=== PATIENT | female | born 1970 | race African-American/Black ===

== ENCOUNTER 2018-02-13 20:08 | Inpatient (IN) | payer OTHER ==
[2018-02-13 21:35] VITALS: BMI 23.0
[2018-02-13] MEDS ORDERED: MELATONIN 5 MG TABLETS PO PRN (22:00)
--- NOTE | 2018-02-13 22:08 | HP ---
CIWA Score Nausea/Vomitin-No Nausea/No Vomiting Muscle Tremors: 4-Moderate,w/Arms Extend Anxiety: 3 Agitation: 0-Normal Activity Paroxysmal Sweats: 1-Minimal Palms Moist Orientation: 2-Disoriented Date<2 days Tacttile Disturbances: 0-None Auditory Disturbances: 0-None Visual Disturbances: 0-None Headache: 4-Moderately Severe CIWA-Ar Total Score: 14 - Admission Criteria OASAS Guidelines: Admission for Medically Managed Detox: Requires at least one of the followin. CIWA greater than 12 2. Seizures within the past 24 hours 3. Delirium tremens within the past 24 hours 4. Hallucinations within the past 24 hours 5. Acute intervention needed for co occurring medical disorder 6. Acute intervention needed for co occurring psychiatric disorder 7. Severe withdrawal that cannot be handled at a lower level of care (continued vomiting, continued diarrhea, abnormal vital signs) requiring intravenous medication and/or fluids 8. Admission ROS [facility] - [facility] Chief Complaint: Alcohol withdrawal symptoms Allergies/Adverse Reactions: Allergies Allergy/AdvReac Type Severity Reaction Status Date / Time egg [Egg] Allergy Severe Itching Verified 02/13/18 21:23 penicillin G Allergy Intermediate Swelling Verified 02/13/18 21:23 Unclassified Drug Allergy Intermediate ALLERGY TO Verified 02/13/18 21:23 RED SAUCE History of Present Illness: 47 years old female with 28 years history of alcohol dependence is seeking admission to detox. Patient reports 2 years of sobriety. She has medical history of COPD and depression. Patient denies suicidal ideation at this time. Exam Limitations: No Limitations - Ebola screening Have you traveled outside of the country in the last 21 days: No (N) Have you had contact with anyone from an Ebola affected area: No Have you been sick,other than usual withdrawal symptoms: No Do you have a fever: No - Review of Systems Constitutional: Chills, Changes in sleep EENT: reports: No Symptoms Reported Respiratory: reports: No Symptoms reported Cardiac: reports: No Symptoms Reported GI: reports: Poor Appetite, Poor Fluid Intake, Abdominal cramping : reports: No Symptoms Reported Musculoskeletal: reports: No Symptoms Reported Integumentary: reports: Dryness Neuro: reports: Headache, Tremors Endocrine: reports: No Symptoms Reported Hematology: reports: No Symptoms Reported Psychiatric: reports: Anxious, Depressed Other Systems: Reviewed and Negative Patient History - Patient Medical History Hx Anemia: No Hx Asthma: No Hx Chronic Obstructive Pulmonary Disease (COPD): No Hx Cancer: No Hx Cardiac Disorders: No Hx Congestive Heart Failure: No Hx Hypertension: No Hx Hypercholesterolemia: No HX Cerebrovascular Accident: No Hx Seizures: No Hx Dementia: No Hx Diabetes: No Hx Gastrointestinal Disorders: No Hx Liver Disease: No Hx Genitourinary Disorders: No Hx Sexually Transmitted Disorders: No Hx Renal Disease (ESRD): No Hx Thyroid Disease: No Hx Human Immunodeficiency Virus (HIV): No (Negative 2014) Hx Hepatitis C: No Hx Depression: Yes (Seroquel, Zoloft) Hx Suicide Attempt: No Hx Bipolar Disorder: Yes Hx Schizophrenia: No - Patient Surgical History Past Surgical History: Yes Hx Neurologic Surgery: No Hx Cataract Extraction: No Hx Cardiac Surgery: No Hx Lung Surgery: No Hx Breast Surgery: No Hx Breast Biopsy: No Hx Abdominal Surgery: No Hx Appendectomy: No Hx Cholecystectomy: No Hx Genitourinary Surgery: No Hx Section: Yes (2005) Hx Orthopedic Surgery: No Anesthesia Reaction: No - PPD History Previous Implant?: Yes Documented Results: Negative w/proof Date: 01/21/14 PPD to be Administered?: Yes - Reproductive History Patient is a Female of Child Bearing Age (11 -55 yrs old): Yes Last Menstrual Period: 01/16/14 LMP comment: Menopausal Patient : No (Last menstruation 3 years ago) - Smoking Cessation Smoking history: Current every day smoker Have you smoked in the past 12 months: Yes Aproximately how many cigarettes per day: 30 Hx Chewing Tobacco Use: No Initiated information on smoking cessation: Yes 'Breaking Loose' booklet given: 02/13/18 - Substance & Tx. History Hx Alcohol Use: Yes Hx Substance Use: Yes Substance Use Type: Alcohol, Cocaine Hx Substance Use Treatment: Yes (Yanick MACEDO 2016) - Substances Abused Alcohol Route: Oral Frequency: Daily Amount used: LIQUOR- 3 PINTS Age of first use: 19 Date of Last Use: 02/13/18 Family Disease History - Family Disease History Family Disease History: Other: Mother (Heroine addiction, AIDS - ) Admission Physical Exam [facility] - Vital Signs Vital Signs: Vital Signs - 24 hr 02/13/18 21:27 Temperature 98.0 F Pulse Rate 101 H Respiratory 18 Rate Blood Pressure 131/86 - Physical General Appearance: Yes: Moderate Distress, Tremorous, Anxious HEENTM: Yes: EOMI, Normal ENT Inspection, Normal Voice, ALESSANDRA Respiratory: Yes: Lungs Clear, Normal Breath Sounds, No Respiratory Distress Neck: Yes: Supple Breast: Yes: Breast Exam Deferred Cardiology: Yes: Tachycardia Abdominal: Yes: Normal Bowel Sounds Genitourinary: Yes: Within Normal Limits Back: Yes: Normal Inspection Musculoskeletal: Yes: Within Normal Limits Extremities: Yes: Tremors Neurological: Yes: Alert, Normal Mood/Affect Integumentary: Yes: Warm Lymphatic: Yes: Within Normal Limits - Diagnostic (1) Alcohol dependence with uncomplicated withdrawal Current Visit: Yes Status: Chronic (2) COPD (chronic obstructive pulmonary disease) with emphysema Current Visit: Yes Status: Chronic (3) Depression Current Visit: Yes Status: Chronic Qualifiers: Depression Type: unspecified Qualified Code(s): F32.9 - Major depressive disorder, single episode, unspecified (4) Nicotine dependence Current Visit: Yes Status: Chronic Cleared for Admission [facility] - Detox or Rehab [facility] Level of Care: Medically Managed Detox Regimen/Protocol: Librium [facility] Breath Alcohol Content Breath Alcohol Content: 164 Urine Pregancy Test - Result Urine Test Results: Negative- NO Line Present Urine Drug Screen - Results Drug Screen Negative: No Urine Drug Screen Results: LINDSAY-Cocaine
[2018-02-13] MEDS ORDERED: NICOTINE POLACRILEX 2 MG GUM BC PRN (22:17)
[2018-02-13] MEDS ORDERED: guaiFENesin/D-METHORPHAN HB 10 ML UNIT-DOSE CUPS PO PRN (22:17)
[2018-02-13] MEDS ORDERED: IBUPROFEN 400 MG TABLET (FP) PO PRN (22:17)
[2018-02-13] MEDS ORDERED: chlordiazePOXIDE HCL 25 MG CAPSULE PO PRN (22:17)
[2018-02-13] MEDS ORDERED: ACETAMINOPHEN 325 MG TABLET (FP) PO PRN (22:17)
[2018-02-13] MEDS ORDERED: LOPERAMIDE HCL 2 MG CAPSULE PO PRN (22:17)
[2018-02-13] MEDS ORDERED: MAGNESIUM HYDROX 2400MG/30ML ORAL SUSPENSION 30 ML CUP PO PRN (22:17)
[2018-02-13] MEDS ORDERED: P-EPHED 60MG/TRIPROLIDI 2.5MG TABLET PO PRN (22:17)
[2018-02-13] MEDS ORDERED: MAGNESIUM CITRATE 300 ML BOTTLE PO PRN (22:17)
[2018-02-13] MEDS ORDERED: MENTHOL/PHENOL 1 EACH UD MM PRN (22:17)
[2018-02-13] MEDS ORDERED: MAG HYDROX/AL HYDROX/SIMETH 30 ML UNIT-DOSE CUP PO PRN (22:17)
[2018-02-13] MEDS: chlordiazePOXIDE HCL 25 MG CAPSULE PO SCH (23:36)
[2018-02-14] MEDS: chlordiazePOXIDE HCL 25 MG CAPSULE PO SCH ×2 (06:43→10:22)
[2018-02-14 07:26] VITALS: PULSE 79
--- NOTE | 2018-02-14 07:35 | CONSULT ---
[facility] Psychiatric Consult - Data Date of interview: 02/14/18 Admission source: [facility] Identifying data: 47 years old female with 28 years history of alcohol dependence is seeking admission to detox. Patient reports 2 years of sobriety. She has medical history of COPD and depression. Patient denies suicidal ideation at this time. Substance Abuse History: - Smoking Cessation. Smoking history: Current every day smoker. Have you smoked in the past 12 months: Yes. Aproximately how many cigarettes per day: 30. Hx Chewing Tobacco Use: No. Initiated information on smoking cessation: Yes. 'Breaking Loose' booklet given: 02/13/18. - Substance & Tx. History. Hx Alcohol Use: Yes. Hx Substance Use: Yes. Substance Use Type : Alcohol, Cocaine. Hx Substance Use Treatment: Yes (Yanick MACEDO 2016). - Substances Abused. Alcohol. Route: Oral. Frequency: Daily. Amount used: LIQUOR- 3 PINTS. Age of first use: 19. Date of Last Use: 02/13/18 Medical History: COPD, Psychiatric History: Patient reports history of anxiety and depression, as per computer there is a history of BD-II, reprots most recent psychiatric admission on 2006 at [facility] for safety, reports takinhg prior to admission: Zoloft 50mg po qhd. Seroquel 200mg po qhs. Denies suicidal and homicidal history Physical/Sexual Abuse/Trauma History: Denies Additional Comment: Zoloft 50mg po qhd. Seroquel 200mg po qhs Mental Status Exam - Mental Status Exam Alert and Oriented to: Person Cognitive Function: Fair Patient Appearance: Unkempt Mood: Sad Affect: Flat Patient Behavior: Sedated, Cooperative Speech Pattern: Delayed Voice Loudness: Mildly Soft/Quiet Thought Process: Circumstantial, Goal Oriented Thought Disorder: Being Controlled Hallucinations: Denies Suicidal Ideation: Denies Homicidal Ideation: Denies Insight/Judgement: Fair Sleep: Difficulty falling asleep Appetite: Fair Muscle strength/Tone: Mild Hypotonicity Gait/Station: Shuffling Additional Comments: Zoloft 50mg po qhd. Seroquel 200mg po qhs Psychiatric Findings - Problem List ([place] 1, 2,3) (1) Alcohol dependence with uncomplicated withdrawal Current Visit: Yes Status: Chronic (2) COPD (chronic obstructive pulmonary disease) with emphysema Current Visit: Yes Status: Chronic (3) Nicotine dependence Current Visit: Yes Status: Chronic (4) Bipolar II disorder Current Visit: No Status: Acute - Initial Treatment Plan Initial Treatment Plan: Zoloft 50mg po qhd. Seroquel 200mg po qhs
[2018-02-14 09:30] VITALS: BP 114/67; TEMP 96.2
[2018-02-14] MEDS ORDERED: SERTRALINE HCL 50 MG TABLET (FP) PO SCH (10:00)
[2018-02-14] MEDS ORDERED: PRENATAL VITAMINS W/ FOLIC ACID TABLET (FP) PO SCH (10:00)
[2018-02-14] MEDS ORDERED: NICOTINE 14 MG/24 HOURS TOPICAL PATCH TD SCH (10:00)
[2018-02-14 10:29] LABS: HEMOGLOBIN 13.7 GM/dL (10.7-15.3); MCH 32.4 pg (25.7-33.7); MCHC 33.5 g/dl (32.0-36.0); MEAN CELL VOLUME 96.8 fl (80-96); MEAN PLT VOLUME 8.6 fl (7.5-11.1); PLATELET COUNT 244 K/MM3 (134-434); RBC 4.24 M/mm3 (3.60-5.2); RDW 13.5 % (11.6-15.6); WHITE BLOOD COUNT 5.3 K/mm3 (4.0-10.0)
[2018-02-14 10:41] LABS: ALBUMIN 3.4 g/dl (3.4-5.0); ALK PHOS 129 U/L (45-117); ANION GAP 10 MMOL/L (8-16); BILIRUBIN,TOTAL 0.4 mg/dL (0.2-1); BLOOD UREA NITROGEN 15 mg/dL (7-18); CALCIUM 9.4 mg/dL (8.5-10.1); CHLORIDE 103 mmol/L (98-107); CO2 27 mmol/L (21-32); CREATININE 0.7 mg/dL (0.55-1.3); GLUCOSE,RANDOM 94 mg/dL (74-106); POTASSIUM 3.6 mmol/L (3.5-5.1); SGOT/AST 13 U/L (15-37); SGPT/ALT 14 U/L (13-61); SODIUM 140 mmol/L (136-145); TOT PROT 7.2 g/dl (6.4-8.2)
--- NOTE | 2018-02-14 10:51 | EKG ---
Test Reason : Blood Pressure : / mmHG Vent. Rate : 080 BPM Atrial Rate : 080 BPM P-R Int : 152 ms QRS Dur : 076 ms QT Int : 394 ms P-R-T Axes : 061 -34 062 degrees QTc Int : 454 ms NORMAL SINUS RHYTHM LEFT AXIS DEVIATION SEPTAL INFARCT , AGE UNDETERMINED ABNORMAL ECG NO PREVIOUS ECGS AVAILABLE Confirmed by LEIGHANN SCHWARTZ MD ([id number]) on 02/14/2018 10:51:00 AM Referred By: Confirmed By:LEIGHANN SCHWARTZ MD
--- NOTE | 2018-02-14 14:27 | DS ---
[facility] Detox Discharge Summary Admission Date: 02/13/18 Discharge Date: 02/14/18 - History Present History: Alcohol Dependence Additional Comments: 47 years old female admitted on 02/13/18 for alcohol withdrawal sx alert oriented x 3 no acute distress denies suicidal denies homocidal no self destructive behavior insists to leave the detox unit that "this is not for me" strong recommend [facility] self help services meeting and groups - Physical Exam Results Vital Signs: Vital Signs Temperature 96.2 F L 02/14/18 09:29 Pulse Rate 79 02/14/18 09:29 Respiratory Rate 16 02/14/18 09:29 Blood Pressure 114/67 02/14/18 09:29 O2 Sat by Pulse Oximetry (%) Pertinent Admission Physical Exam Findings: alcohol withdrawal sx Vital Signs Temperature 96.2 F L 02/14/18 09:29 Pulse Rate 79 02/14/18 09:29 Respiratory Rate 16 02/14/18 09:29 Blood Pressure 114/67 02/14/18 09:29 O2 Sat by Pulse Oximetry (%) Laboratory Last Values WBC 5.3 K/mm3 (4.0-10.0) 02/14/18 07:10 RBC 4.24 M/mm3 (3.60-5.2) 02/14/18 07:10 Hgb 13.7 GM/dL (10.7-15.3) 02/14/18 07:10 Hct 41.0 % (32.4-45.2) 02/14/18 07:10 MCV 96.8 fl (80-96) H 02/14/18 07:10 MCH 32.4 pg (25.7-33.7) 02/14/18 07:10 MCHC 33.5 g/dl (32.0-36.0) 02/14/18 07:10 RDW 13.5 % (11.6-15.6) D 02/14/18 07:10 Plt Count 244 K/MM3 (134-434) 02/14/18 07:10 MPV 8.6 fl (7.5-11.1) 02/14/18 07:10 Sodium 140 mmol/L (136-145) 02/14/18 07:10 Potassium 3.6 mmol/L (3.5-5.1) 02/14/18 07:10 Chloride 103 mmol/L (98-107) 02/14/18 07:10 Carbon Dioxide 27 mmol/L (21-32) 02/14/18 07:10 Anion Gap 10 MMOL/L (8-16) 02/14/18 07:10 BUN 15 mg/dL (7-18) 02/14/18 07:10 Creatinine 0.7 mg/dL (0.55-1.3) 02/14/18 07:10 Creat Clearance w eGFR > 60 (>60) 02/14/18 07:10 Random Glucose 94 mg/dL (74-106) 02/14/18 07:10 Calcium 9.4 mg/dL (8.5-10.1) 02/14/18 07:10 Total Bilirubin 0.4 mg/dL (0.2-1) 02/14/18 07:10 AST 13 U/L (15-37) L 02/14/18 07:10 ALT 14 U/L (13-61) 02/14/18 07:10 Alkaline Phosphatase 129 U/L (45-117) H 02/14/18 07:10 Total Protein 7.2 g/dl (6.4-8.2) 02/14/18 07:10 Albumin 3.4 g/dl (3.4-5.0) 02/14/18 07:10 RPR Titer Nonreactive (NONREACTIVE) 02/14/18 07:10 HIV 1&2 Antibody Screen Negative 02/14/18 07:10 HIV P24 Antigen Negative 02/14/18 07:10 lab noted - Treatment Hospital Course: Detox Protocol Followed, Responded well - Medication Discharge Medications: Ambulatory Orders Quetiapine Fumarate [Seroquel -] 200 mg PO HS 02/13/18 Quetiapine Fumarate [Seroquel -] 200 mg PO HS #30 tab 02/14/18 Sertraline HCl [Zoloft -] 50 mg PO DAILY #30 tablet 02/14/18 - Diagnosis (1) Bipolar II disorder Status: Suspected (2) Alcohol dependence with uncomplicated withdrawal Status: Acute (3) COPD (chronic obstructive pulmonary disease) with emphysema Status: Chronic Qualifiers: Emphysema type: centrilobular Qualified Code(s): J43.2 - Centrilobular emphysema (4) Nicotine dependence Status: Acute Qualifiers: Nicotine product type: cigarettes Substance use status: in withdrawal Qualified Code(s): F17.213 - Nicotine dependence, cigarettes, with withdrawal - AMA Did Patient Leave Against Medical Advice: Yes
[2018-02-14] MEDS ORDERED: QUEtiapine FUMARATE 200 MG TABLET PO SCH (22:00)
[2018-02-14] MEDS ORDERED: THIAMINE HCL 100 MG TABLET (FP) PO SCH (22:00)
[2018-02-14] MEDS ORDERED: chlordiazePOXIDE HCL 25 MG CAPSULE PO SCH (23:00)
[2018-02-15] MEDS ORDERED: chlordiazePOXIDE 5 MG CAPSULE PO SCH (23:00)
[2018-02-16] MEDS ORDERED: chlordiazePOXIDE HCL 10 MG CAPSULE PO SCH (23:00)
== END 2018-02-14 12:40 | disposition home or self-care (01) | DRG 775 ==
LOC: YASAS 20:08 → Y6N 22:34
PROC: HZ2ZZZZ Detoxification Services for Substance Abuse Treatment (ICD-10-PCS; principal; 2018-02-13)
DX: F10.230 Alcohol dependence with withdrawal, uncomplicated (principal); F17.213 Nicotine dependence, cigarettes, with withdrawal; F31.81 Bipolar II disorder; F32.9 Major depressive disorder, single episode, unspecified; J43.2 Centrilobular emphysema; Z88.0 Allergy status to penicillin
CPT/HCPCS: 36415; 80053; 85027; 86593; 87389; 93005; 93010

== ENCOUNTER 2018-05-19 11:09 | Inpatient (IN) | payer OTHER ==
[2018-05-19 11:47] VITALS: BMI 23.0
[2018-05-19] MEDS ORDERED: guaiFENesin/D-METHORPHAN HB 10 ML UNIT-DOSE CUPS PO PRN (13:33)
[2018-05-19] MEDS ORDERED: ACETAMINOPHEN 325 MG TABLET (FP) PO PRN (13:33)
[2018-05-19] MEDS ORDERED: MAG HYDROX/AL HYDROX/SIMETH 30 ML UNIT-DOSE CUP PO PRN (13:33)
[2018-05-19] MEDS ORDERED: IBUPROFEN 400 MG TABLET (FP) PO PRN (13:33)
[2018-05-19] MEDS ORDERED: LOPERAMIDE HCL 2 MG CAPSULE PO PRN (13:33)
[2018-05-19] MEDS ORDERED: MENTHOL/PHENOL 1 EACH UD MM PRN (13:33)
[2018-05-19] MEDS ORDERED: MAGNESIUM CITRATE 300 ML BOTTLE PO PRN (13:33)
[2018-05-19] MEDS ORDERED: P-EPHED 60MG/TRIPROLIDI 2.5MG TABLET PO PRN (13:33)
[2018-05-19] MEDS ORDERED: MAGNESIUM HYDROX 2400MG/30ML ORAL SUSPENSION 30 ML CUP PO PRN (13:33)
[2018-05-19] MEDS ORDERED: chlordiazePOXIDE HCL 25 MG CAPSULE PO PRN (13:35)
--- NOTE | 2018-05-19 13:42 | HP ---
CIWA Score Nausea/Vomitin-No Nausea/No Vomiting Muscle Tremors: 3 Anxiety: 3 Agitation: 2 Paroxysmal Sweats: No Perspiration Orientation: 0-Oriented Tacttile Disturbances: 2-Mild Itch/Numbness/Burn Auditory Disturbances: 0-None Visual Disturbances: 0-None Headache: 2-Mild CIWA-Ar Total Score: 12 - Admission Criteria OASAS Guidelines: Admission for Medically Managed Detox: Requires at least one of the followin. CIWA greater than 12 2. Seizures within the past 24 hours 3. Delirium tremens within the past 24 hours 4. Hallucinations within the past 24 hours 5. Acute intervention needed for co occurring medical disorder 6. Acute intervention needed for co occurring psychiatric disorder 7. Severe withdrawal that cannot be handled at a lower level of care (continued vomiting, continued diarrhea, abnormal vital signs) requiring intravenous medication and/or fluids 8. Admission [facility] Chief Complaint: ETOH WITHDRAWAL SX AND COCAINE DEPENDENCE Allergies/Adverse Reactions: Allergies Allergy/AdvReac Type Severity Reaction Status Date / Time egg [Egg] Allergy Severe Rash Verified 05/19/18 13:12 Penicillins Allergy Severe Swelling Verified 05/19/18 13:12 RED SAUCE Allergy Severe Swelling Uncoded 05/19/18 13:12 History of Present Illness: PATIENT PRESENTS WITH ETOH WITHDRAWAL SX AND COCAINE DEPENDENCE. PATIENT IS KNOWN IS TO [facility], LAST ADMISSION TO DETOX IN 02/2018. PATIENT WENT TO [facility] ER LAST NIGHT FOR ETOH WITHDRAWAL SX AND TREATED WITH LIBRIUM. PATIENT BEGAN DRINKING 20 YEARS AGO AND DRINKS 4 PINTS OF VODKA DAILY. DENIES H/ O SEIZURES. + BLACKOUTS, BINGE DRINKING AND DRINKING FIRST THING IN THE MORNING. LAST DRINK WAS LAST NIGHT. PATIENT ALSO SMOKES CRACK FOR 12 YEARS. AMOUNT SHE SMOKES VARIES ON FINANCES. LAST USE LAST NIGHT. PATIENT'S PMH INCLUDES TOBACCO USE AND BIPOLAR DISORDER. PATIENT NONCOMPLIANT WITH MEDICATIONS. DENIES SI/HI AND SUICIDE ATTEMPTS. Exam Limitations: No Limitations - Ebola screening Have you traveled outside of the country in the last 21 days: No Have you had contact with anyone from an Ebola affected area: No Have you been sick,other than usual withdrawal symptoms: No Do you have a fever: No - Review of Systems Constitutional: Changes in sleep, Weight Stable EENT: reports: No Symptoms Reported Respiratory: reports: No Symptoms reported Cardiac: reports: No Symptoms Reported GI: reports: Poor Fluid Intake, Abdominal cramping : reports: Frequency (DUE TO ETOH INTAKE) Musculoskeletal: reports: No Symptoms Reported Integumentary: reports: No Symptoms Reported Neuro: reports: Headache, Numbness, Tingling, Tremors Endocrine: reports: No Symptoms Reported Hematology: reports: No Symptoms Reported Psychiatric: reports: Orientated x3, Anxious, Depressed Patient History - Patient Medical History Hx Anemia: No Hx Asthma: No Hx Chronic Obstructive Pulmonary Disease (COPD): No Hx Cancer: No Hx Cardiac Disorders: No Hx Congestive Heart Failure: No Hx Hypertension: No Hx Hypercholesterolemia: No HX Cerebrovascular Accident: No Hx Seizures: No Hx Dementia: No Hx Diabetes: No Hx Gastrointestinal Disorders: No Hx Liver Disease: No Hx Genitourinary Disorders: No Hx Sexually Transmitted Disorders: No Hx Renal Disease (ESRD): No Hx Thyroid Disease: No Hx Human Immunodeficiency Virus (HIV): No (Negative 2014) Hx Hepatitis C: No Hx Depression: Yes Hx Suicide Attempt: No Hx Bipolar Disorder: Yes Hx Schizophrenia: No - Patient Surgical History Past Surgical History: Yes Hx Neurologic Surgery: No Hx Cataract Extraction: No Hx Cardiac Surgery: No Hx Lung Surgery: No Hx Breast Surgery: No Hx Breast Biopsy: No Hx Abdominal Surgery: No Hx Appendectomy: No Hx Cholecystectomy: No Hx Genitourinary Surgery: No Hx Section: Yes (2005) Hx Orthopedic Surgery: No Anesthesia Reaction: No - PPD History Previous Implant?: Yes Documented Results: Negative w/proof Implanted On Prior [facility] Admission?: Yes Date: 01/21/14 Results: 0 mm PPD to be Administered?: Yes - Reproductive History Last Menstrual Period: 01/16/14 Patient : No - Smoking Cessation Smoking history: Current every day smoker Have you smoked in the past 12 months: Yes Aproximately how many cigarettes per day: 20 Hx Chewing Tobacco Use: No Initiated information on smoking cessation: Yes 'Breaking Loose' booklet given: 05/19/18 - Substance & Tx. History Hx Alcohol Use: Yes Hx Substance Use: Yes Substance Use Type: Alcohol, Cocaine Hx Substance Use Treatment: Yes - Substances Abused Cocaine Route: Inhalation Frequency: 1-3 times last 30 days Amount used: $20-30 Age of first use: 24 Date of Last Use: 05/18/18 Alcohol-vodka Route: Oral Frequency: Daily Amount used: 3 pts. Age of first use: 16 Date of Last Use: 05/18/18 Family Disease History - Family Disease History Family Disease History: Other: Mother (Heroine addiction, AIDS - ) Admission Physical Exam [facility] - Vital Signs Vital Signs: Vital Signs - 24 hr 05/19/18 11:36 Temperature 98.1 F Pulse Rate 103 H Respiratory 16 Rate Blood Pressure 147/87 - Physical General Appearance: Yes: Nourished, Appropriately Dressed, Tremorous, Anxious HEENTM: Yes: EOMI, Hearing grossly Normal, Normal ENT Inspection, Normocephalic , Normal Voice, ALESSANDRA, Pharynx Normal Respiratory: Yes: Chest Non-Tender, Lungs Clear, Normal Breath Sounds, No Respiratory Distress, No Accessory Muscle Use Neck: Yes: No masses,lesions,Nodules, Supple, Trachea in good position Breast: Yes: Breast Exam Deferred Cardiology: Yes: Regular Rhythm, Regular Rate, S1, S2 Abdominal: Yes: Normal Bowel Sounds, Non Tender, Soft Genitourinary: Yes: Frequency Back: Yes: Within Normal Limits Musculoskeletal: Yes: full range of Motion, Gait Steady Extremities: Yes: Normal Range of Motion, Non-Tender, Tremors Neurological: Yes: net sql developer II-XII NML intact, Fully Oriented, Alert, Motor Strength 5/5, Normal Response, Depressed Affect, Other (ANXIOUS) Integumentary: Yes: Normal Color, Dry, Warm Lymphatic: Yes: Within Normal Limits - Diagnostic (1) Cocaine dependence Current Visit: Yes Status: Chronic Qualifiers: Substance use status: uncomplicated Qualified Code(s): F14.20 - Cocaine dependence, uncomplicated (2) Alcohol dependence with uncomplicated withdrawal Current Visit: Yes Status: Acute (3) Nicotine dependence Current Visit: Yes Status: Chronic Qualifiers: Nicotine product type: cigarettes Substance use status: in withdrawal Qualified Code(s): F17.213 - Nicotine dependence, cigarettes, with withdrawal (4) Bipolar II disorder Current Visit: Yes Status: Chronic Cleared for Admission [facility] - Detox or Rehab [facility] Level of Care: Medically Managed Detox Regimen/Protocol: Librium [facility] Breath Alcohol Content Breath Alcohol Content: 0 Urine Pregancy Test - Result Urine Test Results: Negative- NO Line Present Urine Drug Screen - Results Drug Screen Negative: No Urine Drug Screen Results: LINDSAY-Cocaine, BZO-Benzodiazepines Inpatient Rehab Admission - Rehab Decision to Admit Inpatient rehab admission?: No
[2018-05-19] MEDS: chlordiazePOXIDE HCL 25 MG CAPSULE PO SCH ×2 (16:40→23:17)
[2018-05-19] MEDS: NICOTINE POLACRILEX 2 MG GUM BUC PRN (19:35)
[2018-05-19] MEDS ORDERED: MELATONIN 5 MG TABLETS PO PRN (22:00)
[2018-05-19] MEDS: THIAMINE HCL 100 MG TABLET (FP) PO SCH (23:17)
[2018-05-20] MEDS: chlordiazePOXIDE HCL 25 MG CAPSULE PO SCH ×4 (06:19→23:30)
[2018-05-20] MEDS ORDERED: PRENATAL VITAMINS W/ FOLIC ACID TABLET (FP) PO SCH (10:00)
--- NOTE | 2018-05-20 10:02 | PN ---
[facility] CIWA - CIWA Score Nausea/Vomitin Muscle Tremors: 2 Anxiety: 2 Agitation: 2 Paroxysmal Sweats: 1-Minimal Palms Moist Orientation: 0-Oriented Tacttile Disturbances: 1-Very Mild Itch/Numbness Auditory Disturbances: 1-Very Mild Visual Disturbances: 0-None Headache: 2-Mild CIWA-Ar Total Score: 13 [facility] Progress Note (SOAP) Subjective: alert,irritable,anxious,interrupted sleep,tremor Objective: 05/20/18 10:01 Vital Signs Temperature 97.9 F 05/20/18 09:14 Pulse Rate 74 05/20/18 09:14 Respiratory Rate 18 05/20/18 09:14 Blood Pressure 143/84 05/20/18 09:14 O2 Sat by Pulse Oximetry (%) 05/20/18 10:01 Laboratory Last Values HIV 1&2 Antibody Screen Negative 05/19/18 14:00 HIV P24 Antigen Negative 05/19/18 14:00 labs pending Assessment: 05/20/18 10:01 withdrawal symptom Plan: continue detox
--- NOTE | 2018-05-20 10:18 | CONSULT ---
[facility] Psychiatric Consult - Data Date of interview: 05/20/18 Admission source: Self-referred Identifying data: Ms Youssef is a 47 years old single Black female, mother of 3 children, unemployed on public assistance, homeless seeking detox treatment for alcohol and cocaine Substance Abuse History: Reports history of alcohol and cocaine use. Refer to addiction counselor's summary for further information Medical History: Unremarkable except history of in 2005. Smokes cigarettes 1 ppd Psychiatric History: Patient is very irritable, uncooperative with the interview. Reports being diagnosed with Bipolar Disorder years ago when she was admitted to [facility]. Reports history of multiple psychiatric inpatient hospitalizations. She was very irritable by my questioning that she would not provide ad writer with names of various admitting facility, just saying [facility] was the last one. Told ad writer that she was so busy drinking and using drug that she neglected going to outpatient psychiatric care or taking medications. Reports that she was last on Seroquel 200 mg po HS and Zoloft 50 mg po daily. She does not want to resume Zoloft, requesting only Seroquel. Denies previous suicidal ideations. On a previous admission in this facility in January 2014, she reported being diagnosed with Bipolar in 2004 with 4 previous psychiatric hospitalizations including most recent one at [facility]. At present, patient is very irritable at present. Physical/Sexual Abuse/Trauma History: Denies history of emotional, physical or sexual abuse as well as DV relationship Additional Comment: Denies criminal history Mental Status Exam - Mental Status Exam Alert and Oriented to: Time, Place, Person Cognitive Function: Fair Patient Appearance: Well Groomed Mood: Irritable Affect: Appropriate Patient Behavior: Uncooperative Speech Pattern: Clear Voice Loudness: Normal Thought Process: Intact, Goal Oriented Thought Disorder: Not Present Hallucinations: Denies Homicidal Ideation: Denies Insight/Judgement: Poor Sleep: Poorly Appetite: Good Muscle strength/Tone: Normal Gait/Station: Normal Psychiatric Findings - Problem List ([place] 1, 2,3) (1) Bipolar II disorder Current Visit: Yes Status: Chronic (2) Substance induced mood disorder Current Visit: Yes Status: Acute (3) Alcohol dependence with uncomplicated withdrawal Current Visit: Yes Status: Acute (4) Cocaine dependence Current Visit: Yes Status: Acute Qualifiers: Substance use status: uncomplicated Qualified Code(s): F14.20 - Cocaine dependence, uncomplicated (5) Nicotine dependence Current Visit: Yes Status: Chronic Qualifiers: Nicotine product type: cigarettes Substance use status: in withdrawal Qualified Code(s): F17.213 - Nicotine dependence, cigarettes, with withdrawal - Initial Treatment Plan Initial Treatment Plan: 1) Start Seroquel 100 mg po HS. 2) Continue inpatient detoxification
[2018-05-20] MEDS: NICOTINE POLACRILEX 2 MG GUM BUC PRN ×4 (10:23→19:48)
[2018-05-20 11:23] LABS: HEMATOCRIT 47.4 % (32.4-45.2); HEMOGLOBIN 15.8 GM/dL (10.7-15.3); MCH 32.6 pg (25.7-33.7); MCHC 33.4 g/dl (32.0-36.0); MEAN CELL VOLUME 97.7 fl (80-96); MEAN PLT VOLUME 9.9 fl (7.5-11.1); PLATELET COUNT 194 K/MM3 (134-434); RBC 4.85 M/mm3 (3.60-5.2); RDW 14.9 % (11.6-15.6); WHITE BLOOD COUNT 5.3 K/mm3 (4.0-10.0)
[2018-05-20 12:27] LABS: ALBUMIN 4.4 g/dl (3.4-5.0); ALK PHOS 168 U/L (45-117); ANION GAP 12 MMOL/L (8-16); BILIRUBIN,TOTAL 0.8 mg/dL (0.2-1); BLOOD UREA NITROGEN 11 mg/dL (7-18); CALCIUM 10.3 mg/dL (8.5-10.1); CHLORIDE 99 mmol/L (98-107); CO2 24 mmol/L (21-32); CREATININE 0.7 mg/dL (0.55-1.3); GLUCOSE,RANDOM 86 mg/dL (74-106); SGOT/AST 38 U/L (15-37); SGPT/ALT 25 U/L (13-61); SODIUM 135 mmol/L (136-145)
[2018-05-20 19:12] LABS: URINE APPEARANCE CLEAR; URINE BILIRUBIN NEGATIVE (<2.0 mg/dL); URINE COLOR YELLOW; URINE GLUCOSE (UA) NEGATIVE (NEGATIVE); URINE KETONE 1+ (NEGATIVE); URINE LEUK ESTERASE NEGATIVE (NEGATIVE); URINE NITRITE NEGATIVE (NEGATIVE); URINE PROTEIN NEGATIVE (NEGATIVE); URINE UROBILINOGEN NEGATIVE mg/dL (0.2-1.0)
[2018-05-20] MEDS ORDERED: QUEtiapine FUMARATE 100 MG TABLET (FP) PO SCH (22:00)
[2018-05-20] MEDS: THIAMINE HCL 100 MG TABLET (FP) PO SCH (23:30)
[2018-05-21] MEDS: chlordiazePOXIDE HCL 25 MG CAPSULE PO SCH (06:15)
[2018-05-21 09:37] VITALS: BP 120/81; PULSE 87; TEMP 97.5
--- NOTE | 2018-05-21 09:52 | PN ---
S CIWA - CIWA Score Nausea/Vomitin Muscle Tremors: 2 Anxiety: 2 Agitation: 2 Paroxysmal Sweats: 1-Minimal Palms Moist Orientation: 0-Oriented Tacttile Disturbances: 1-Very Mild Itch/Numbness Auditory Disturbances: 1-Very Mild Visual Disturbances: 0-None Headache: 2-Mild CIWA-Ar Total Score: 13 BHS Progress Note (SOAP) Subjective: alert,irritable,anxious,interrupted sleep,tremor Objective: 05/21/18 09:50 Vital Signs Temperature 97.5 F L 05/21/18 09:36 Pulse Rate 87 05/21/18 09:36 Respiratory Rate 20 05/21/18 09:36 Blood Pressure 120/81 05/21/18 09:36 O2 Sat by Pulse Oximetry (%) 05/21/18 09:51 Laboratory Last Values WBC 5.3 K/mm3 (4.0-10.0) 05/20/18 06:00 RBC 4.85 M/mm3 (3.60-5.2) 05/20/18 06:00 Hgb 15.8 GM/dL (10.7-15.3) H 05/20/18 06:00 Hct 47.4 % (32.4-45.2) H D 05/20/18 06:00 MCV 97.7 fl (80-96) H 05/20/18 06:00 MCH 32.6 pg (25.7-33.7) 05/20/18 06:00 MCHC 33.4 g/dl (32.0-36.0) 05/20/18 06:00 RDW 14.9 % (11.6-15.6) D 05/20/18 06:00 Plt Count 194 K/MM3 (134-434) D 05/20/18 06:00 MPV 9.9 fl (7.5-11.1) D 05/20/18 06:00 Sodium 135 mmol/L (136-145) L 05/20/18 06:00 Potassium 4.0 mmol/L (3.5-5.1) 05/20/18 06:00 Chloride 99 mmol/L (98-107) 05/20/18 06:00 Carbon Dioxide 24 mmol/L (21-32) 05/20/18 06:00 Anion Gap 12 MMOL/L (8-16) 05/20/18 06:00 BUN 11 mg/dL (7-18) 05/20/18 06:00 Creatinine 0.7 mg/dL (0.55-1.3) 05/20/18 06:00 Creat Clearance w eGFR > 60 (>60) 05/20/18 06:00 Random Glucose 86 mg/dL (74-106) 05/20/18 06:00 Calcium 10.3 mg/dL (8.5-10.1) H 05/20/18 06:00 Total Bilirubin 0.8 mg/dL (0.2-1) 05/20/18 06:00 AST 38 U/L (15-37) H 05/20/18 06:00 ALT 25 U/L (13-61) 05/20/18 06:00 Alkaline Phosphatase 168 U/L (45-117) H 05/20/18 06:00 Total Protein 9.0 g/dl (6.4-8.2) H 05/20/18 06:00 Albumin 4.4 g/dl (3.4-5.0) 05/20/18 06:00 Urine Color Yellow 05/20/18 00:00 Urine Appearance Clear 05/20/18 00:00 Urine pH 7.0 (5.0-8.0) 05/20/18 00:00 Ur Specific [place] 1.017 (1.010-1.035) 05/20/18 00:00 Urine Protein Negative (NEGATIVE) 05/20/18 00:00 Urine Glucose (UA) Negative (NEGATIVE) 05/20/18 00:00 Urine Ketones 1+ (NEGATIVE) H 05/20/18 00:00 Urine Blood Negative (NEGATIVE) 05/20/18 00:00 Urine Nitrite Negative (NEGATIVE) 05/20/18 00:00 Urine Bilirubin Negative (<2.0 mg/dL) 05/20/18 00:00 Urine Urobilinogen Negative mg/dL (0.2-1.0) 05/20/18 00:00 Ur Leukocyte Esterase Negative (NEGATIVE) 05/20/18 00:00 RPR Titer Nonreactive (NONREACTIVE) 05/20/18 06:00 HIV 1&2 Antibody Screen Negative 05/19/18 14:00 HIV P24 Antigen Negative 05/19/18 14:00 Assessment: 02/16/19 09:50 withdrawal symptom Plan: continue detox,repeat calcium in 1m
--- NOTE | 2018-05-21 10:14 | PN ---
[facility] Progress Note Note: patient did not want to complete treatment,all attempts to convince patient to stay with no avail, seen by counselor,explained to patient for high risks of relapsing,patient has abnormal lab calcium is 10.3 need repeat,patient understood,need repeat,stated she will see her own medical provider for follow up on blood test, patient signed release ama,advise to go to nearest emergency room if any emergency problem, left the unit in stable condition,no suicidal,no homicidal
--- NOTE | 2018-05-21 10:18 | DS ---
[facility] Detox Discharge Summary Admission Date: 05/19/18 Discharge Date: 05/21/18 - History Present History: Alcohol Dependence, Cocaine Dependence Additional Comments: patient did not want to complete treatment,signed release ama Pertinent Past History: nicotine dependence bipolar disorder - Physical Exam Results Vital Signs: Vital Signs Temperature 97.5 F L 05/21/18 09:36 Pulse Rate 87 05/21/18 09:36 Respiratory Rate 20 05/21/18 09:36 Blood Pressure 120/81 05/21/18 09:36 O2 Sat by Pulse Oximetry (%) Pertinent Admission Physical Exam Findings: withdrawal symptom - Medication Discharge Medications: Ambulatory Orders Quetiapine Fumarate [Seroquel -] 200 mg PO HS #30 tab 02/14/18 Sertraline HCl [Zoloft -] 50 mg PO DAILY #30 tablet 02/14/18 - Diagnosis (1) Alcohol dependence with uncomplicated withdrawal Current Visit: Yes Status: Acute (2) Cocaine dependence Current Visit: Yes Status: Acute Qualifiers: Substance use status: uncomplicated Qualified Code(s): F14.20 - Cocaine dependence, uncomplicated (3) Bipolar II disorder Current Visit: Yes Status: Chronic (4) Nicotine dependence Current Visit: Yes Status: Chronic Qualifiers: Nicotine product type: cigarettes Substance use status: in withdrawal Qualified Code(s): F17.213 - Nicotine dependence, cigarettes, with withdrawal - AMA Did Patient Leave Against Medical Advice: Yes
[2018-05-21] MEDS ORDERED: chlordiazePOXIDE 5 MG CAPSULE PO SCH (17:00)
[2018-05-22] MEDS ORDERED: chlordiazePOXIDE HCL 10 MG CAPSULE PO SCH (17:00)
== END 2018-05-21 10:37 | disposition left against medical advice (07) | DRG 770 ==
LOC: YASAS 11:09 → Y6N 14:26
PROVIDERS: ADMIT Surgery; ATTEND Surgery
PROC: HZ2ZZZZ Detoxification Services for Substance Abuse Treatment (ICD-10-PCS; principal; 2018-05-19)
DX: F10.230 Alcohol dependence with withdrawal, uncomplicated (principal); F14.20 Cocaine dependence, uncomplicated; F17.213 Nicotine dependence, cigarettes, with withdrawal; F31.81 Bipolar II disorder; F19.24 Other psychoactive substance dependence with psychoactive substance-induced mood disorder; Z88.0 Allergy status to penicillin; Z91.012 Allergy to eggs
CPT/HCPCS: 36415; 80053; 81003; 85027; 86593; 87389

== ENCOUNTER 2018-05-26 11:59 | Inpatient (IN) | payer OTHER ==
[2018-05-26 13:16] VITALS: BMI 23.6
[2018-05-26] MEDS ORDERED: hydrOXYzine PAMOATE 50 MG CAPSULE (FP) PO PRN (16:12)
[2018-05-26] MEDS ORDERED: MENTHOL/PHENOL 1 EACH UD MM PRN (16:12)
[2018-05-26] MEDS ORDERED: guaiFENesin/D-METHORPHAN HB 10 ML UNIT-DOSE CUPS PO PRN (16:12)
[2018-05-26] MEDS ORDERED: P-EPHED 60MG/TRIPROLIDI 2.5MG TABLET PO PRN (16:12)
[2018-05-26] MEDS ORDERED: MAGNESIUM HYDROX 2400MG/30ML ORAL SUSPENSION 30 ML CUP PO PRN (16:12)
[2018-05-26] MEDS ORDERED: IBUPROFEN 400 MG TABLET (FP) PO PRN (16:12)
[2018-05-26] MEDS ORDERED: MAGNESIUM CITRATE 300 ML BOTTLE PO PRN (16:12)
[2018-05-26] MEDS ORDERED: LOPERAMIDE HCL 2 MG CAPSULE PO PRN (16:12)
[2018-05-26] MEDS ORDERED: MAG HYDROX/AL HYDROX/SIMETH 30 ML UNIT-DOSE CUP PO PRN (16:12)
--- NOTE | 2018-05-26 16:12 | HP ---
CIWA Score Nausea/Vomitin-No Nausea/No Vomiting Muscle Tremors: 3 Anxiety: 3 Agitation: 2 Paroxysmal Sweats: No Perspiration Orientation: 2-Disoriented Date<2 days Tacttile Disturbances: 0-None Auditory Disturbances: 0-None Visual Disturbances: 0-None Headache: 2-Mild CIWA-Ar Total Score: 12 - Admission Criteria OASAS Guidelines: Admission for Medically Managed Detox: Requires at least one of the followin. CIWA greater than 12 2. Seizures within the past 24 hours 3. Delirium tremens within the past 24 hours 4. Hallucinations within the past 24 hours 5. Acute intervention needed for co occurring medical disorder 6. Acute intervention needed for co occurring psychiatric disorder 7. Severe withdrawal that cannot be handled at a lower level of care (continued vomiting, continued diarrhea, abnormal vital signs) requiring intravenous medication and/or fluids 8. Admission ROS S - [facility] Chief Complaint: ETOH WITHDRAWAL SX Allergies/Adverse Reactions: Allergies Allergy/AdvReac Type Severity Reaction Status Date / Time egg [Egg] Allergy Severe Rash Verified 05/26/18 15:53 Penicillins Allergy Severe Swelling Verified 05/26/18 15:53 RED SAUCE Allergy Severe Swelling Uncoded 05/26/18 15:53 History of Present Illness: PATIENT PRESENTS WITH ETOH WITHDRAWAL SX. PATIENT WAS ADMITTED TO DETOX 05/19- BUT SIGNED OUT AMA DUE TO CRAVINGS. PATIENT'S MEAGAN 0.140 HER LAST DRINK WAS 2 HOURS AGO. PATIENT STARTED DRINKING 20 YEARS AGO AND DRINKS 4 PINTS OF VODKA DAILY. 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 DENIES HX OF SEIZURES. PATIENT ALSO SMOKES MARIJUANA AND CRACK WHEN AVAILABLE. AMOUNT VARIES DUE TO FINANCES. PMH INCLUDES BIPOLAR DISORDER, TOBACCO USE AND INSOMNIA. NON COMPLIANT WITH MEDS. DENIES SI/HI. AGREES WITH PLAN TO GIVE SEROQUEL 25MG HS FOR INSOMNIA AND IF DOSAGE REQUIRES ADJUSTING TO CONSULT WITH PSYCH. Exam Limitations: No Limitations - Ebola screening Have you traveled outside of the country in the last 21 days: No Have you had contact with anyone from an Ebola affected area: No Have you been sick,other than usual withdrawal symptoms: No Do you have a fever: No - Review of Systems Constitutional: Chills, Night Sweats, Changes in sleep EENT: reports: No Symptoms Reported Respiratory: reports: No Symptoms reported Cardiac: reports: No Symptoms Reported GI: reports: Poor Fluid Intake : reports: Frequency (DEPENDS ON ETOH INTAKE) Musculoskeletal: reports: No Symptoms Reported Integumentary: reports: No Symptoms Reported Neuro: reports: Headache, Tremors Endocrine: reports: No Symptoms Reported Hematology: reports: No Symptoms Reported Psychiatric: reports: Anxious Patient History - Patient Medical History Hx Anemia: No Hx Asthma: No Hx Chronic Obstructive Pulmonary Disease (COPD): No Hx Cancer: No Hx Cardiac Disorders: No Hx Congestive Heart Failure: No Hx Hypertension: No Hx Hypercholesterolemia: No HX Cerebrovascular Accident: No Hx Seizures: No Hx Dementia: No Hx Diabetes: No Hx Gastrointestinal Disorders: No Hx Liver Disease: No Hx Genitourinary Disorders: No Hx Sexually Transmitted Disorders: No Hx Renal Disease (ESRD): No Hx Thyroid Disease: No Hx Human Immunodeficiency Virus (HIV): No (Negative 2014) Hx Hepatitis C: No Hx Depression: Yes Hx Suicide Attempt: No Hx Bipolar Disorder: Yes Hx Schizophrenia: No - Patient Surgical History Past Surgical History: Yes Hx Neurologic Surgery: No Hx Cataract Extraction: No Hx Cardiac Surgery: No Hx Lung Surgery: No Hx Breast Surgery: No Hx Breast Biopsy: No Hx Abdominal Surgery: No Hx Appendectomy: No Hx Cholecystectomy: No Hx Genitourinary Surgery: No Hx Section: Yes (2005) Hx Orthopedic Surgery: No Hx Hysterectomy: No Anesthesia Reaction: No - PPD History Previous Implant?: Yes Documented Results: Negative w/o proof Implanted On Prior R Admission?: Yes Date: 05/21/18 Results: 0 mm PPD to be Administered?: No - Reproductive History Last Menstrual Period: 01/16/14 Patient : No - Smoking Cessation Smoking history: Current every day smoker Have you smoked in the past 12 months: Yes Aproximately how many cigarettes per day: 20 Hx Chewing Tobacco Use: No Initiated information on smoking cessation: Yes 'Breaking Loose' booklet given: 05/26/18 - Substance & Tx. History Hx Alcohol Use: Yes Hx Substance Use: Yes Substance Use Type: Alcohol, Cocaine, Marijuana Hx Substance Use Treatment: Yes - Substances Abused Alcohol Route: Oral Frequency: Daily Amount used: 2 PINTS VODKA Age of first use: 13 Date of Last Use: 05/26/18 Cocaine Route: Inhalation Frequency: 1-3 times last 30 days Amount used: $50 Age of first use: 20 Date of Last Use: 05/24/18 Family Disease History - Family Disease History Family Disease History: Other: Mother (Heroine addiction, AIDS - ) Admission Physical Exam [facility] - Vital Signs Vital Signs: Vital Signs - 24 hr 05/26/18 13:14 Temperature 97.6 F Pulse Rate 115 H Respiratory 18 Rate Blood Pressure 103/69 - Physical General Appearance: Yes: No Apparent Distress, Appropriately Dressed, Intoxicated, Tremorous, Anxious HEENTM: Yes: EOMI, Hearing grossly Normal, Normal ENT Inspection, Normocephalic , Normal Voice, ALESSANDRA, Pharynx Normal Respiratory: Yes: Chest Non-Tender, Lungs Clear, Normal Breath Sounds, No Respiratory Distress, No Accessory Muscle Use Neck: Yes: No masses,lesions,Nodules, Supple, Trachea in good position Breast: Yes: Breast Exam Deferred Cardiology: Yes: Regular Rhythm, Regular Rate, S1, S2 Abdominal: Yes: Normal Bowel Sounds, Non Tender, Soft Genitourinary: Yes: Frequency (DUE TO ETOH INTAKE) Back: Yes: Normal Inspection Musculoskeletal: Yes: full range of Motion, Gait Steady Extremities: Yes: Normal Inspection, Normal Range of Motion, Non-Tender, Tremors 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 intact, Alert, Motor Strength 5/5, Normal Mood /Affect, Normal Response, Disoriented (FORGETFUL WITH DATE), Other (ANXIOUS) Integumentary: Yes: Normal Color, Dry, Warm Lymphatic: Yes: Within Normal Limits - Diagnostic (1) Marijuana use Current Visit: Yes Status: Chronic (2) Alcohol dependence with uncomplicated withdrawal Current Visit: Yes Status: Acute (3) Cocaine dependence Current Visit: Yes Status: Chronic Qualifiers: Substance use status: uncomplicated Qualified Code(s): F14.20 - Cocaine dependence, uncomplicated (4) Bipolar II disorder Current Visit: Yes Status: Chronic (5) Nicotine dependence Current Visit: Yes Status: Chronic Qualifiers: Nicotine product type: cigarettes Substance use status: in withdrawal Qualified Code(s): F17.213 - Nicotine dependence, cigarettes, with withdrawal Cleared for Admission [facility] - Detox or Rehab [facility] Level of Care: Medically Managed Detox Regimen/Protocol: Librium [facility] Breath Alcohol Content Breath Alcohol Content: 0.140 Urine Pregancy Test - Result Urine Test Results: Negative- NO Line Present Urine Drug Screen - Results Drug Screen Negative: No Urine Drug Screen Results: THC-Marijuana, LINDSAY-Cocaine, BZO-Benzodiazepines Inpatient Rehab Admission - Rehab Decision to Admit Inpatient rehab admission?: No
[2018-05-26] MEDS ORDERED: chlordiazePOXIDE HCL 25 MG CAPSULE PO PRN (16:13)
[2018-05-26] MEDS: NICOTINE POLACRILEX 2 MG GUM BC PRN (20:51)
[2018-05-26] MEDS ORDERED: QUEtiapine FUMARATE 25 MG TABLET (FP) PO SCH (22:00)
[2018-05-26] MEDS ORDERED: MELATONIN 5 MG TABLETS PO PRN (22:00)
[2018-05-26] MEDS: THIAMINE HCL 100 MG TABLET (FP) PO SCH (22:59)
[2018-05-26] MEDS: chlordiazePOXIDE HCL 25 MG CAPSULE PO SCH (22:59)
[2018-05-26 23:11] LABS: URINE APPEARANCE TURBID; URINE BILIRUBIN NEGATIVE (<2.0 mg/dL); URINE COLOR YELLOW; URINE GLUCOSE (UA) NEGATIVE (NEGATIVE); URINE KETONE NEGATIVE (NEGATIVE); URINE LEUK ESTERASE TRACE (NEGATIVE); URINE NITRITE NEGATIVE (NEGATIVE); URINE PROTEIN 2+ (NEGATIVE); URINE UROBILINOGEN NEGATIVE mg/dL (0.2-1.0)
[2018-05-26 23:20] LABS: EPI CELLS RARE /HPF (FEW); URINE BACTERIA RARE /hpf (NONE SEEN); URINE MUCUS MANY
[2018-05-27] MEDS: chlordiazePOXIDE HCL 25 MG CAPSULE PO SCH ×4 (05:55→22:04)
[2018-05-27] MEDS: NICOTINE POLACRILEX 2 MG GUM BC PRN ×6 (05:56→22:06)
[2018-05-27] MEDS: PRENATAL VITAMINS W/ FOLIC ACID TABLET (FP) PO SCH (10:18)
--- NOTE | 2018-05-27 15:44 | CONSULT ---
[facility] Psychiatric Consult - Data Date of interview: 05/27/18 Admission source: [facility] Identifying data: Readmission to [facility] for this 47 y/o AA female self- referred for detoxification treatment (alcohol, cocaine, cannabis). Patient is single, a mother of three, homeless (resides in [place]), unemployed and supported on Public Assistance. Substance Abuse History: Confirmed by the patient in this interview. Details in current [facility] report as follows : Smoking history: Current every day smoker. Have you smoked in the past 12 months: Yes. Aproximately how many cigarettes per day: 20. Hx Chewing Tobacco Use: No. Initiated information on smoking cessation: Yes. 'Breaking Loose' booklet given: 05/26/18. - Substance & Tx. History. Hx Alcohol Use: Yes. Hx Substance Use: Yes. Substance Use Type: Alcohol, Cocaine, Marijuana. Hx Substance Use Treatment: Yes. - Substances Abused. Alcohol. Route: Oral. Frequency: Daily. Amount used: 2 PINTS VODKA. Age of first use: 13. Date of Last Use: 05/26/18. Cocaine. Route: Inhalation. Frequency: 1-3 times last 30 days. Amount used: $50. Age of first use: 20. Date of Last Use: 05/24/18 Medical History: Patient endorses good general health. Remote history of one section (2005). Psychiatric History: Patient admits to a history of " more than 10 " psychiatric hospitalizations ([facility], [facility], [facility]). Diagnosed with Bipolar Disorder. Ms Youssef states that she used to be medicated with seroquel + sertraline. " I have not taken these medications for more than five months because I don't mix my medicines with drugs or alcohol ". No psychiatric OPD care for months. Patient declares that she utilizes CPE[facility] settings for medications refills. Denies history of suicide attempts. Physical/Sexual Abuse/Trauma History: No reported history of abuse. Additional Comment: Urine Drug Screen Results: THC-Marijuana, LINDSAY-Cocaine, BZO- Benzodiazepines. Noted. Mental Status Exam - Mental Status Exam Alert and Oriented to: Time, Place, Person Cognitive Function: Good Patient Appearance: Well Groomed Mood: Hopeful, Euthymic Affect: Appropriate, Normal Range Patient Behavior: Appropriate, Cooperative (pleasant) Speech Pattern: Clear, Appropriate Voice Loudness: Normal Thought Process: Intact, Goal Oriented Thought Disorder: Not Present Hallucinations: Denies Suicidal Ideation: Denies Homicidal Ideation: Denies Insight/Judgement: Poor Sleep: Poorly, Difficulty falling asleep Appetite: Good Muscle strength/Tone: Normal Gait/Station: Normal Psychiatric Findings - Problem List ([place] 1, 2,3) (1) Alcohol dependence with uncomplicated withdrawal Current Visit: Yes Status: Acute (2) Cocaine dependence Current Visit: Yes Status: Chronic Qualifiers: Substance use status: uncomplicated Qualified Code(s): F14.20 - Cocaine dependence, uncomplicated (3) Marijuana use Current Visit: Yes Status: Chronic (4) Nicotine dependence Current Visit: Yes Status: Acute Qualifiers: Nicotine product type: cigarettes Substance use status: in withdrawal Qualified Code(s): F17.213 - Nicotine dependence, cigarettes, with withdrawal (5) Substance induced mood disorder Current Visit: Yes Status: Suspected (6) History of bipolar disorder Current Visit: Yes Status: Chronic Comment: Not symptomatic. No follow-up for several months. (7) Insomnia Current Visit: Yes Status: Chronic (8) Non-compliance Current Visit: Yes Status: Chronic - Initial Treatment Plan Initial Treatment Plan: Psychoeducation. Sleep hygiene. Detoxification in progress. Support. AA meetings. Relapse prevention discussed (MAT strategies + counseling + AA fellowship + psychotherapies). Seroquel 50 mg po hs (resumed at patiet's specific request). Made aware of side effects/benefits of the drug. Consent (verbal) granted to MD. Craft.
--- NOTE | 2018-05-27 18:57 | PN ---
S CIWA - CIWA Score Nausea/Vomitin-No Nausea/No Vomiting Muscle Tremors: 3 Anxiety: 1-Mildly Anxious Agitation: 1-Slight > Activity Paroxysmal Sweats: 3 Orientation: 0-Oriented Tacttile Disturbances: 2-Mild Itch/Numbness/Burn Auditory Disturbances: 1-Very Mild Visual Disturbances: 0-None Headache: 3-Moderate CIWA-Ar Total Score: 14 BHS Progress Note (SOAP) Subjective: Interrupted Sleep, Sweating, H/A, Hot / Cold Sensations, Tremors. Objective: PATIENT A & O X 3, OBSERVED AMBULATING ON UNIT. IN NO ACUTE DISTRESS. 05/27/18 18:59 Vital Signs Temperature 98.1 F 05/27/18 17:51 Pulse Rate 100 H 05/27/18 17:51 Respiratory Rate 16 05/27/18 17:51 Blood Pressure 122/86 05/27/18 17:51 O2 Sat by Pulse Oximetry (%) Laboratory Tests 05/26/18 19:05 Urine Color Yellow Urine Appearance Turbid Urine pH 6.0 Ur Specific [place] 1.023 Urine Protein 2+ H Urine Glucose (UA) Negative Urine Ketones Negative Urine Blood Negative Urine Nitrite Negative Urine Bilirubin Negative Urine Urobilinogen Negative Ur Leukocyte Esterase Trace Urine WBC (Auto) 3 Urine RBC (Auto) None Ur Epithelial Cells Rare Urine Bacteria Rare Urine Mucus Many UA results noted. CBC, CMP RESULTS Ordered, Results Pending. Assessment: 05/27/18 19:00 withdrawal symptoms. Plan: CONTINUE DETOX. INCREASE DAILY PO FLUID INTAKE. PRN FLEXERIL PO FOR BODY ACHES / MUSCLE SPASMS.
[2018-05-27] MEDS: CYCLOBENZAPRINE HCL 10 MG TABLET (FP) PO PRN (22:04)
[2018-05-27] MEDS: THIAMINE HCL 100 MG TABLET (FP) PO SCH (22:04)
[2018-05-27] MEDS: QUEtiapine FUMARATE 50 MG TABLET PO SCH (22:04)
[2018-05-28] MEDS: chlordiazePOXIDE HCL 25 MG CAPSULE PO SCH ×3 (06:26→17:28)
[2018-05-28] MEDS: PRENATAL VITAMINS W/ FOLIC ACID TABLET (FP) PO SCH (10:05)
[2018-05-28] MEDS: NICOTINE POLACRILEX 2 MG GUM BC PRN ×4 (10:06→20:38)
[2018-05-28] MEDS: ACETAMINOPHEN 325 MG TABLET (FP) PO PRN ×2 (12:27→20:38)
--- NOTE | 2018-05-28 17:04 | PN ---
[facility] CIWA - CIWA Score Nausea/Vomitin-No Nausea/No Vomiting Muscle Tremors: 3 Anxiety: 4-Mod. Anxious/Guarded Agitation: 4-Moderately Restless Paroxysmal Sweats: 3 Orientation: 0-Oriented Tacttile Disturbances: 0-None Auditory Disturbances: 0-None Visual Disturbances: 0-None Headache: 0-None Present CIWA-Ar Total Score: 14 BHS Progress Note (SOAP) Subjective: sweats anxious Objective: 05/28/18 17:03 A & O x 3 Noted pacing on unit anxious denies SI/HI, auditory nor visual hallucination Vital Signs Temperature 96 F L 05/28/18 13:28 Pulse Rate 109 H 05/28/18 13:28 Respiratory Rate 18 05/28/18 13:28 Blood Pressure 107/77 05/28/18 13:28 O2 Sat by Pulse Oximetry (%) Assessment: 05/28/18 17:04 withdrawal sx anxiety Plan: continue detox continue psych meds
[2018-05-28] MEDS: QUEtiapine FUMARATE 50 MG TABLET PO SCH (22:07)
[2018-05-28] MEDS: chlordiazePOXIDE 5 MG CAPSULE PO SCH (22:07)
[2018-05-28] MEDS: CYCLOBENZAPRINE HCL 10 MG TABLET (FP) PO PRN (22:07)
[2018-05-28] MEDS: THIAMINE HCL 100 MG TABLET (FP) PO SCH (22:07)
[2018-05-29] MEDS: chlordiazePOXIDE 5 MG CAPSULE PO SCH ×3 (06:00→17:02)
[2018-05-29] MEDS: NICOTINE POLACRILEX 2 MG GUM BC PRN ×5 (08:38→21:09)
[2018-05-29] MEDS: PRENATAL VITAMINS W/ FOLIC ACID TABLET (FP) PO SCH (10:28)
--- NOTE | 2018-05-29 11:35 | PN ---
S CIWA - CIWA Score Nausea/Vomitin-No Nausea/No Vomiting Muscle Tremors: 2 Anxiety: 2 Agitation: 2 Paroxysmal Sweats: 1-Minimal Palms Moist Orientation: 0-Oriented Tacttile Disturbances: 0-None Auditory Disturbances: 0-None Visual Disturbances: 0-None Headache: 1-Very Mild CIWA-Ar Total Score: 8 BHS Progress Note (SOAP) Subjective: feeling better less tremor mild sweating sleep better at night social with peers in day room Objective: 05/29/18 11:35 Vital Signs Temperature 96.5 F L 05/29/18 09:25 Pulse Rate 90 05/29/18 09:25 Respiratory Rate 20 05/29/18 09:25 Blood Pressure 111/74 05/29/18 09:25 O2 Sat by Pulse Oximetry (%) Laboratory Last Values Urine Color Yellow 05/26/18 19:05 Urine Appearance Turbid 05/26/18 19:05 Urine pH 6.0 (5.0-8.0) 05/26/18 19:05 Ur Specific [place] 1.023 (1.010-1.035) 05/26/18 19:05 Urine Protein 2+ (NEGATIVE) H 05/26/18 19:05 Urine Glucose (UA) Negative (NEGATIVE) 05/26/18 19:05 Urine Ketones Negative (NEGATIVE) 05/26/18 19:05 Urine Blood Negative (NEGATIVE) 05/26/18 19:05 Urine Nitrite Negative (NEGATIVE) 05/26/18 19:05 Urine Bilirubin Negative (<2.0 mg/dL) 05/26/18 19:05 Urine Urobilinogen Negative mg/dL (0.2-1.0) 05/26/18 19:05 Ur Leukocyte Esterase Trace (NEGATIVE) 05/26/18 19:05 Urine WBC (Auto) 3 /hpf (3-5) 05/26/18 19:05 Urine RBC (Auto) None /hpf (0-3) 05/26/18 19:05 Ur Epithelial Cells Rare /HPF (FEW) 05/26/18 19:05 Urine Bacteria Rare /hpf (NONE SEEN) 05/26/18 19:05 Urine Mucus Many 05/26/18 19:05 lab noted 05/29/18 11:36 see 05/21/18 lab Assessment: 05/29/18 11:36 mild withdrawal sx Plan: continue detox
[2018-05-29] MEDS: CYCLOBENZAPRINE HCL 10 MG TABLET (FP) PO PRN (22:09)
[2018-05-29] MEDS: chlordiazePOXIDE HCL 10 MG CAPSULE PO SCH (22:09)
[2018-05-29] MEDS: QUEtiapine FUMARATE 50 MG TABLET PO SCH (22:09)
[2018-05-29] MEDS: THIAMINE HCL 100 MG TABLET (FP) PO SCH (22:09)
[2018-05-30] MEDS: chlordiazePOXIDE HCL 10 MG CAPSULE PO SCH ×2 (06:04→10:22)
[2018-05-30] MEDS: NICOTINE POLACRILEX 2 MG GUM BC PRN ×3 (08:13→12:19)
--- NOTE | 2018-05-30 08:47 | DS ---
[facility] Detox Discharge Summary Admission Date: 05/26/18 Discharge Date: 05/30/18 - History Present History: Alcohol Dependence Additional Comments: 47 years old female admitted on 05/26/18 for alcohol withdrawal stabilization completed detox regimen aftercare [facility] Pertinent Past History: patient currently not taking medication for medical issues - Physical Exam Results Vital Signs: Vital Signs Temperature 96.8 F L 05/29/18 17:45 Pulse Rate 95 H 05/29/18 17:45 Respiratory Rate 18 05/30/18 03:30 Blood Pressure 111/78 05/29/18 17:45 O2 Sat by Pulse Oximetry (%) - Treatment Hospital Course: Detox Protocol Followed, Detoxed Safely, Responded well, Discharged Condition Good, Rehab Referral Accepted - Medication Discharge Medications: Ambulatory Orders Quetiapine Fumarate [Seroquel -] 200 mg PO HS #30 tab 02/14/18 Sertraline HCl [Zoloft -] 50 mg PO DAILY #30 tablet 02/14/18 - Diagnosis (1) Nicotine dependence Current Visit: Yes Status: Acute Qualifiers: Nicotine product type: cigarettes Substance use status: in withdrawal Qualified Code(s): F17.213 - Nicotine dependence, cigarettes, with withdrawal (2) Alcohol dependence with uncomplicated withdrawal Current Visit: Yes Status: Acute (3) Substance induced mood disorder Current Visit: Yes Status: Suspected - AMA Did Patient Leave Against Medical Advice: No
[2018-05-30] MEDS: PRENATAL VITAMINS W/ FOLIC ACID TABLET (FP) PO SCH (10:02)
[2018-05-30 13:36] VITALS: BP 115/82; PULSE 111; TEMP 96.3
== END 2018-05-30 14:02 | disposition home or self-care (01) | DRG 753 ==
LOC: YASAS 11:59 → Y3N 16:37
PROVIDERS: ADMIT Surgery; ATTEND Surgery
PROC: HZ2ZZZZ Detoxification Services for Substance Abuse Treatment (ICD-10-PCS; principal; 2018-05-26)
DX: F31.81 Bipolar II disorder (principal); F10.230 Alcohol dependence with withdrawal, uncomplicated; F14.20 Cocaine dependence, uncomplicated; F17.210 Nicotine dependence, cigarettes, uncomplicated; F19.24 Other psychoactive substance dependence with psychoactive substance-induced mood disorder; G47.00 Insomnia, unspecified; Z86.59 Personal history of other mental and behavioral disorders; Z91.19 Patient's noncompliance with other medical treatment and regimen
CPT/HCPCS: 81003; 81015

== ENCOUNTER 2018-05-30 14:14 | Inpatient (IN) | payer OTHER ==
--- NOTE | 2018-05-30 12:27 | HP ---
[facility] Rehab Assess/Revision - Admission History Admitted to Rehab from: [facility] Date of Admission to Rehab: 05/30/18 - Findings Detox History & Physical reviewed: Yes Concur with findings: Yes Comments/Additional Findings: transferred from detox to rehab admission as per protocol Inpatient Rehab Admission - Rehab Decision to Admit Inpatient rehab admission?: Yes - Initial Determination Are CD services needed?: Yes Free of communicable disease: Yes Not in need of hospitalization: Yes - Rehab Admission Criteria Previous failed treatment: Yes Poor recovery environment: Yes Comorbidities: Yes Lacks judgement: No Patient is meeting Inpatient Rehab admission criteria:: Yes
[~2018-05-30 14:14] MED LIST: IBUPROFEN 400 MG TABLET (FP) PO PRN; LOPERAMIDE HCL 2 MG CAPSULE PO PRN; MAG HYDROX/AL HYDROX/SIMETH 30 ML UNIT-DOSE CUP PO PRN; MAGNESIUM CITRATE 300 ML BOTTLE PO PRN; MAGNESIUM HYDROX 2400MG/30ML ORAL SUSPENSION 30 ML CUP PO PRN; MENTHOL/PHENOL 1 EACH UD MM PRN; P-EPHED 60MG/TRIPROLIDI 2.5MG TABLET PO PRN; guaiFENesin/D-METHORPHAN HB 10 ML UNIT-DOSE CUPS PO PRN
[2018-05-30] MEDS ORDERED: NICOTINE 14 MG/24 HOURS TOPICAL PATCH TD PRN (14:45)
[2018-05-30] MEDS: NICOTINE POLACRILEX 2 MG GUM BUC PRN ×3 (15:29→21:17)
[2018-05-30] MEDS: ACETAMINOPHEN 325 MG TABLET (FP) PO PRN (19:14)
[2018-05-30] MEDS: MELATONIN 5 MG TABLETS PO PRN (21:16)
[2018-05-30] MEDS: THIAMINE HCL 100 MG TABLET (FP) PO SCH (21:16)
[2018-05-31] MEDS: NICOTINE POLACRILEX 2 MG GUM BUC PRN (06:35)
[2018-05-31] MEDS: PRENATAL VITAMINS W/ FOLIC ACID TABLET (FP) PO SCH (10:45)
[2018-05-31] MEDS: NICOTINE POLACRILEX 4 MG GUM BUC PRN ×4 (12:43→21:35)
[2018-05-31] MEDS: ACETAMINOPHEN 325 MG TABLET (FP) PO PRN (14:39)
[2018-05-31] MEDS: MELATONIN 5 MG TABLETS PO PRN (21:35)
[2018-05-31] MEDS: THIAMINE HCL 100 MG TABLET (FP) PO SCH (21:35)
[2018-06-01] MEDS: NICOTINE POLACRILEX 4 MG GUM BUC PRN ×6 (06:25→21:17)
[2018-06-01] MEDS: PRENATAL VITAMINS W/ FOLIC ACID TABLET (FP) PO SCH (09:56)
[2018-06-01] MEDS: THIAMINE HCL 100 MG TABLET (FP) PO SCH (21:17)
[2018-06-01] MEDS: MELATONIN 5 MG TABLETS PO PRN (21:17)
[2018-06-02] MEDS: NICOTINE POLACRILEX 4 MG GUM BUC PRN ×5 (08:36→22:05)
--- NOTE | 2018-06-02 09:29 | PN ---
[facility] Progress Note Note: PATIENT SEEN FOR REQUEST TO RESUME NALTREXONE/VIVITROL THAT SHE WAS ON OVER A YEAR AGO. PATIENT STATES WITH MEDICATION SHE WAS ABLE TO MAINTAIN SOBRIETY FOR 9 MONTHS AND WOULD LIKE TO RESUME MEDICATION. PATIENT REFERRED TO COUNSELING TO CONNECT TO PROVIDER THAT CAN CONTINUE TREATMENT ONCE DISCHARGED. 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 PATIENT ALSO SEEN BY DR. FARAH WHILE IN DETOX AND ORDERED SEROQUEL 50MG HS. MEDICATION TO BE CONTINUED WHILE IN REHAB. Vital Signs Temperature 97.4 F L 06/02/18 06:54 Pulse Rate 97 H 06/02/18 06:54 Respiratory Rate 18 06/02/18 06:54 Blood Pressure 96/68 06/02/18 06:54 O2 Sat by Pulse Oximetry (%)
[2018-06-02] MEDS: PRENATAL VITAMINS W/ FOLIC ACID TABLET (FP) PO SCH (10:44)
[2018-06-02] MEDS: MELATONIN 5 MG TABLETS PO PRN (21:25)
[2018-06-02] MEDS: QUEtiapine FUMARATE 50 MG TABLET PO SCH (21:25)
[2018-06-02] MEDS: THIAMINE HCL 100 MG TABLET (FP) PO SCH (21:25)
[2018-06-03] MEDS: NICOTINE POLACRILEX 4 MG GUM BUC PRN ×6 (07:29→21:33)
[2018-06-03] MEDS: PRENATAL VITAMINS W/ FOLIC ACID TABLET (FP) PO SCH (09:37)
[2018-06-03] MEDS: ACETAMINOPHEN 325 MG TABLET (FP) PO PRN ×2 (10:42→15:06)
[2018-06-03] MEDS: MELATONIN 5 MG TABLETS PO PRN (21:32)
[2018-06-03] MEDS: QUEtiapine FUMARATE 50 MG TABLET PO SCH (21:32)
[2018-06-03] MEDS: THIAMINE HCL 100 MG TABLET (FP) PO SCH (21:32)
[2018-06-04] MEDS: NICOTINE POLACRILEX 4 MG GUM BUC PRN ×6 (07:46→21:24)
[2018-06-04] MEDS: PRENATAL VITAMINS W/ FOLIC ACID TABLET (FP) PO SCH (09:52)
[2018-06-04] MEDS: ACETAMINOPHEN 325 MG TABLET (FP) PO PRN (21:23)
[2018-06-04] MEDS: THIAMINE HCL 100 MG TABLET (FP) PO SCH (21:24)
[2018-06-04] MEDS: QUEtiapine FUMARATE 50 MG TABLET PO SCH (21:24)
[2018-06-04] MEDS: MELATONIN 5 MG TABLETS PO PRN (21:25)
[2018-06-05] MEDS: NICOTINE POLACRILEX 4 MG GUM BUC PRN ×5 (06:58→21:15)
[2018-06-05] MEDS: ACETAMINOPHEN 325 MG TABLET (FP) PO PRN ×2 (06:58→10:08)
[2018-06-05] MEDS: PRENATAL VITAMINS W/ FOLIC ACID TABLET (FP) PO SCH (10:08)
--- NOTE | 2018-06-05 13:36 | PN ---
S Progress Note Note: swelling with pain left face,dental cavity let upper with gingivitis pain in left face Vital Signs Temperature 98.1 F 06/05/18 07:14 Pulse Rate 110 H 06/05/18 07:14 Respiratory Rate 18 06/05/18 07:14 Blood Pressure 108/69 06/05/18 07:14 O2 Sat by Pulse Oximetry (%) will give clindamycin 600 mgs po tid for 7 days lidocaine viscous prn motrin 600 mgs po q 6 hra prn for pain
--- NOTE | 2018-06-05 13:42 | PN ---
S Progress Note Note: clindamycin 600 mgs po now then 300 mgs po tid for 7 days for infected dental cavity and gingivitis left,lidocaine viscous prn,motrin 600 mgs po q 6 hrs prn for pain
[2018-06-05] MEDS ORDERED: LIDOCAINE VISCOUS 2% ORAL/TOP 100 ML BOTTLE MM PRN (13:44)
[2018-06-05] MEDS ORDERED: CLINDAMYCIN HCL 150 MG CAPSULE (FP) PO ONE (14:00)
[2018-06-05] MEDS ORDERED: CLINDAMYCIN HCL 300 MG CAPSULE PO ONE (14:00)
[2018-06-05] MEDS: IBUPROFEN 600 MG TABLET (FP) PO PRN (18:53)
[2018-06-05] MEDS: MELATONIN 5 MG TABLETS PO PRN (21:13)
[2018-06-05] MEDS: QUEtiapine FUMARATE 50 MG TABLET PO SCH (21:14)
[2018-06-05] MEDS: THIAMINE HCL 100 MG TABLET (FP) PO SCH (21:14)
[2018-06-05] MEDS: CLINDAMYCIN HCL 150 MG CAPSULE (FP) PO SCH (21:15)
[2018-06-06] MEDS ORDERED: PT OWN MED DRAWER 7, Y5N ONE (03:33)
[2018-06-06] MEDS: IBUPROFEN 600 MG TABLET (FP) PO PRN ×2 (06:15→12:06)
[2018-06-06] MEDS: CLINDAMYCIN HCL 150 MG CAPSULE (FP) PO SCH ×3 (06:15→21:44)
[2018-06-06] MEDS: NICOTINE POLACRILEX 4 MG GUM BUC PRN ×6 (06:15→20:31)
[2018-06-06] MEDS: PRENATAL VITAMINS W/ FOLIC ACID TABLET (FP) PO SCH (09:59)
--- NOTE | 2018-06-06 15:08 | PN ---
[facility] Progress Note Note: PATIENT SEEN FOR REQUEST TO START NALTREXONE CHALLENGE PRIOR TO VIVITROL INJECTION. PATIENT CONNECTED TO [facility] IN [facility] BY COUNSELOR EUSEBIO. APPOINTMENT TO BE ARRANGED ACCORDING TO DISCHARGE DATE FROM REHAB ON 06/27/18. PATIENT REPORTS TAKING NALTREXONE IN PAST AND WAS SOBER X 9 MONTHS. Vital Signs Temperature 97.4 F L 06/06/18 06:59 Pulse Rate 89 06/06/18 06:59 Respiratory Rate 18 06/06/18 06:59 Blood Pressure 102/65 06/06/18 06:59 O2 Sat by Pulse Oximetry (%) PE: ALERT AND ORIENTED X 3 SKIN WARM AND DRY +PERRLA, EOMS INTACT LEFT CHEEK SWOLLEN DUE TO ORAL ABSCESS (TREATED WITH CLEOCIN) EXT FULL ROM, NO VISIBLE TREMORS AMB AD CATHERINE A/P: ALCOHOL DEPENDENCE WILL START NALTREXONE CHALLENGE MONITOR RESPONSE CLINICALLY
[2018-06-06] MEDS: QUEtiapine FUMARATE 50 MG TABLET PO SCH (21:44)
[2018-06-06] MEDS: THIAMINE HCL 100 MG TABLET (FP) PO SCH (21:44)
[2018-06-06] MEDS: MELATONIN 5 MG TABLETS PO PRN (21:45)
[2018-06-06] MEDS: ACETAMINOPHEN 325 MG TABLET (FP) PO PRN (21:46)
[2018-06-07] MEDS: CLINDAMYCIN HCL 150 MG CAPSULE (FP) PO SCH ×3 (06:30→21:33)
[2018-06-07] MEDS: ACETAMINOPHEN 325 MG TABLET (FP) PO PRN (06:30)
[2018-06-07] MEDS: NICOTINE POLACRILEX 4 MG GUM BUC PRN ×6 (06:31→21:34)
[2018-06-07] MEDS: NALTREXONE HCL 50 MG TABLET PO SCH (10:12)
[2018-06-07] MEDS: PRENATAL VITAMINS W/ FOLIC ACID TABLET (FP) PO SCH (10:12)
[2018-06-07] MEDS: IBUPROFEN 600 MG TABLET (FP) PO PRN (10:13)
[2018-06-07 13:32] LABS: ALK PHOS 129 U/L (45-117); ANION GAP 9 MMOL/L (8-16); BILIRUBIN,TOTAL 0.4 mg/dL (0.2-1); BLOOD UREA NITROGEN 15 mg/dL (7-18); CALCIUM 10.2 mg/dL (8.5-10.1); CHLORIDE 99 mmol/L (98-107); CO2 29 mmol/L (21-32); CREATININE 0.8 mg/dL (0.55-1.3); GLUCOSE,RANDOM 71 mg/dL (74-106); POTASSIUM 4.1 mmol/L (3.5-5.1); SGOT/AST 54 U/L (15-37); SGPT/ALT 68 U/L (13-61); SODIUM 136 mmol/L (136-145); TOT PROT 8.1 g/dl (6.4-8.2)
[2018-06-07] MEDS: THIAMINE HCL 100 MG TABLET (FP) PO SCH (21:33)
[2018-06-07] MEDS: MELATONIN 5 MG TABLETS PO PRN (21:33)
[2018-06-07] MEDS: QUEtiapine FUMARATE 50 MG TABLET PO SCH (21:33)
[2018-06-08] MEDS: ACETAMINOPHEN 325 MG TABLET (FP) PO PRN ×2 (06:35→21:25)
[2018-06-08] MEDS: CLINDAMYCIN HCL 150 MG CAPSULE (FP) PO SCH ×3 (06:36→21:25)
[2018-06-08] MEDS: NICOTINE POLACRILEX 4 MG GUM BUC PRN ×5 (06:36→21:26)
[2018-06-08] MEDS: NALTREXONE HCL 50 MG TABLET PO SCH (10:07)
[2018-06-08] MEDS: PRENATAL VITAMINS W/ FOLIC ACID TABLET (FP) PO SCH (10:07)
[2018-06-08] MEDS: IBUPROFEN 600 MG TABLET (FP) PO PRN (10:07)
[2018-06-08] MEDS: QUEtiapine FUMARATE 50 MG TABLET PO SCH (21:25)
[2018-06-08] MEDS: THIAMINE HCL 100 MG TABLET (FP) PO SCH (21:25)
[2018-06-09] MEDS: CLINDAMYCIN HCL 150 MG CAPSULE (FP) PO SCH ×3 (06:23→21:52)
[2018-06-09] MEDS: NICOTINE POLACRILEX 4 MG GUM BUC PRN ×4 (06:24→19:37)
[2018-06-09] MEDS: NALTREXONE HCL 50 MG TABLET PO SCH (10:15)
[2018-06-09] MEDS: PRENATAL VITAMINS W/ FOLIC ACID TABLET (FP) PO SCH (10:15)
[2018-06-09] MEDS: IBUPROFEN 600 MG TABLET (FP) PO PRN ×2 (16:01→21:51)
[2018-06-09] MEDS: THIAMINE HCL 100 MG TABLET (FP) PO SCH (21:51)
[2018-06-09] MEDS: MELATONIN 5 MG TABLETS PO PRN (21:51)
[2018-06-09] MEDS: QUEtiapine FUMARATE 50 MG TABLET PO SCH (21:52)
[2018-06-10] MEDS: NICOTINE POLACRILEX 4 MG GUM BUC PRN ×4 (06:29→23:32)
[2018-06-10] MEDS: CLINDAMYCIN HCL 150 MG CAPSULE (FP) PO SCH ×3 (06:29→23:32)
[2018-06-10] MEDS: NALTREXONE HCL 50 MG TABLET PO SCH (10:08)
[2018-06-10] MEDS: PRENATAL VITAMINS W/ FOLIC ACID TABLET (FP) PO SCH (10:08)
[2018-06-10] MEDS: IBUPROFEN 600 MG TABLET (FP) PO PRN (23:32)
[2018-06-10] MEDS: THIAMINE HCL 100 MG TABLET (FP) PO SCH (23:32)
[2018-06-10] MEDS: QUEtiapine FUMARATE 50 MG TABLET PO SCH (23:32)
[2018-06-10] MEDS: MELATONIN 5 MG TABLETS PO PRN (23:33)
[2018-06-11] MEDS: CLINDAMYCIN HCL 150 MG CAPSULE (FP) PO SCH ×3 (06:28→21:09)
[2018-06-11] MEDS: NICOTINE POLACRILEX 4 MG GUM BUC PRN ×6 (06:29→21:10)
[2018-06-11] MEDS: PRENATAL VITAMINS W/ FOLIC ACID TABLET (FP) PO SCH (10:07)
[2018-06-11] MEDS: NALTREXONE HCL 50 MG TABLET PO SCH (10:07)
[2018-06-11] MEDS: ACETAMINOPHEN 325 MG TABLET (FP) PO PRN ×2 (12:11→21:10)
[2018-06-11] MEDS: QUEtiapine FUMARATE 50 MG TABLET PO SCH (21:09)
[2018-06-11] MEDS: THIAMINE HCL 100 MG TABLET (FP) PO SCH (21:09)
[2018-06-11] MEDS: MELATONIN 5 MG TABLETS PO PRN (21:09)
[2018-06-12] MEDS: CLINDAMYCIN HCL 150 MG CAPSULE (FP) PO SCH ×2 (06:54→12:59)
[2018-06-12] MEDS: NICOTINE POLACRILEX 4 MG GUM BUC PRN ×5 (06:55→21:19)
[2018-06-12] MEDS: PRENATAL VITAMINS W/ FOLIC ACID TABLET (FP) PO SCH (09:41)
[2018-06-12] MEDS: NALTREXONE HCL 50 MG TABLET PO SCH (09:41)
[2018-06-12] MEDS: ACETAMINOPHEN 325 MG TABLET (FP) PO PRN (21:18)
[2018-06-12] MEDS: QUEtiapine FUMARATE 50 MG TABLET PO SCH (21:18)
[2018-06-12] MEDS: MELATONIN 5 MG TABLETS PO PRN (21:18)
[2018-06-12] MEDS: THIAMINE HCL 100 MG TABLET (FP) PO SCH (21:18)
[2018-06-13] MEDS: NICOTINE POLACRILEX 4 MG GUM BUC PRN ×5 (07:47→21:13)
[2018-06-13] MEDS: PRENATAL VITAMINS W/ FOLIC ACID TABLET (FP) PO SCH (10:06)
[2018-06-13] MEDS: NALTREXONE HCL 50 MG TABLET PO SCH (10:06)
[2018-06-13] MEDS: ACETAMINOPHEN 325 MG TABLET (FP) PO PRN (16:41)
[2018-06-13] MEDS: QUEtiapine FUMARATE 50 MG TABLET PO SCH (21:12)
[2018-06-13] MEDS: THIAMINE HCL 100 MG TABLET (FP) PO SCH (21:12)
[2018-06-13] MEDS: MELATONIN 5 MG TABLETS PO PRN (21:12)
[2018-06-13] MEDS: IBUPROFEN 600 MG TABLET (FP) PO PRN (21:12)
[2018-06-14] MEDS: NICOTINE POLACRILEX 4 MG GUM BUC PRN ×6 (06:32→21:38)
[2018-06-14] MEDS: ACETAMINOPHEN 325 MG TABLET (FP) PO PRN ×2 (06:32→21:37)
[2018-06-14] MEDS: NALTREXONE HCL 50 MG TABLET PO SCH (10:06)
[2018-06-14] MEDS: IBUPROFEN 600 MG TABLET (FP) PO PRN (10:06)
[2018-06-14] MEDS: PRENATAL VITAMINS W/ FOLIC ACID TABLET (FP) PO SCH (10:06)
[2018-06-14] MEDS: MELATONIN 5 MG TABLETS PO PRN (21:37)
[2018-06-14] MEDS: QUEtiapine FUMARATE 50 MG TABLET PO SCH (21:37)
[2018-06-14] MEDS: THIAMINE HCL 100 MG TABLET (FP) PO SCH (21:37)
--- NOTE | 2018-06-15 09:45 | PN ---
S Progress Note (SOAP) Subjective: Patient is complaining of right ear pain, increased pain at night. Reports that she has not inserted anything into her ear.Denies nasal stuffiness, sore throat , tooth pain. Reports some sinus pain and a headache. Reports pain at 5/10 Objective: No visible signs of infection or redness externally. Non-tender to palpation. Lymph nodes non-tender. 06/15/18 09:44 Assessment: 06/15/18 09:46 Headache, right ear pain Plan: Encouraged patient to take tylenol as needed and use nasal spray as needed, will continue to monitor.
[2018-06-15] MEDS: NALTREXONE HCL 50 MG TABLET PO SCH (10:02)
[2018-06-15] MEDS: PRENATAL VITAMINS W/ FOLIC ACID TABLET (FP) PO SCH (10:02)
[2018-06-15] MEDS: ACETAMINOPHEN 325 MG TABLET (FP) PO PRN ×2 (10:03→21:31)
[2018-06-15] MEDS: NICOTINE POLACRILEX 4 MG GUM BUC PRN ×5 (10:05→21:33)
--- NOTE | 2018-06-15 15:30 | PN ---
[facility] Progress Note (SOAP) Subjective: client continued to c/o pain after tylenol, but did not use the nasal spray. Now states she used Q-tips to clean her ears. Objective: 06/15/18 15:28 ear canal clear on left, on right, cerumen is evident, no redness, unable to visualize tympanic membrane because of cerumen. Assessment: 06/15/18 15:29 excessive cerumen Plan: debrox ordered. Advised client to discontinue Q-tip use and to use nasal spray to decrease pressure in sinus.
[2018-06-15] MEDS: QUEtiapine FUMARATE 50 MG TABLET PO SCH (21:30)
[2018-06-15] MEDS: MELATONIN 5 MG TABLETS PO PRN (21:30)
[2018-06-15] MEDS: THIAMINE HCL 100 MG TABLET (FP) PO SCH (21:30)
[2018-06-15] MEDS: CARBAMIDE PEROXIDE 6.5% OTIC 15 ML BOTTLE AD SCH (21:31)
[2018-06-15] MEDS ORDERED: CARBAMIDE PEROXIDE 6.5% OTIC 15 ML BOTTLE AS SCH (22:00)
[2018-06-16] MEDS: ACETAMINOPHEN 325 MG TABLET (FP) PO PRN ×3 (06:36→21:28)
[2018-06-16] MEDS: NICOTINE POLACRILEX 4 MG GUM BUC PRN ×5 (06:38→21:28)
[2018-06-16] MEDS: NALTREXONE HCL 50 MG TABLET PO SCH (09:47)
[2018-06-16] MEDS: CARBAMIDE PEROXIDE 6.5% OTIC 15 ML BOTTLE AD SCH ×2 (09:47→21:29)
[2018-06-16] MEDS: PRENATAL VITAMINS W/ FOLIC ACID TABLET (FP) PO SCH (09:47)
[2018-06-16] MEDS: QUEtiapine FUMARATE 50 MG TABLET PO SCH (21:27)
[2018-06-16] MEDS: THIAMINE HCL 100 MG TABLET (FP) PO SCH (21:27)
[2018-06-16] MEDS: MELATONIN 5 MG TABLETS PO PRN (21:28)
[2018-06-17] MEDS: ACETAMINOPHEN 325 MG TABLET (FP) PO PRN ×3 (07:14→19:16)
[2018-06-17] MEDS: NICOTINE POLACRILEX 4 MG GUM BUC PRN ×5 (07:15→21:07)
[2018-06-17] MEDS: PRENATAL VITAMINS W/ FOLIC ACID TABLET (FP) PO SCH (09:49)
[2018-06-17] MEDS: NALTREXONE HCL 50 MG TABLET PO SCH (09:49)
[2018-06-17] MEDS: CARBAMIDE PEROXIDE 6.5% OTIC 15 ML BOTTLE AD SCH (09:50)
--- NOTE | 2018-06-17 10:07 | PN ---
[facility] Progress Note Note: PATIENT PRESENTS WITH C/O RIGHT EAR PAIN X 2 DAYS, THROBBING. PATIENT DENIES TOOTHACHE, HEADACHE, REDUCED HEARING AND SORE THROAT. PATIENT STATES SHE DOES NOT USE Q TIPS TO CLEAN EARS REGULARLY. Laboratory Tests 06/07/18 08:40 Sodium 136 Potassium 4.1 Chloride 99 Carbon Dioxide 29 Anion Gap 9 BUN 15 Creatinine 0.8 Creat Clearance w eGFR > 60 Random Glucose 71 L Calcium 10.2 H Total Bilirubin 0.4 AST 54 H ALT 68 H Alkaline Phosphatase 129 H Total Protein 8.1 Albumin 4.0 Vital Signs Temperature 97.6 F 06/16/18 07:00 Pulse Rate 87 06/16/18 07:00 Respiratory Rate 18 06/17/18 06:47 Blood Pressure 103/65 06/16/18 07:00 O2 Sat by Pulse Oximetry (%) ALERT AND ORIENTED X 3 SKIN WARM AND DRY RIGHT EAR TM INTACT, CANAL PATENT WITH ERYTHEMA, NO EXUDATE PRESENT LEFT EAR TM INTACT, CANAL PATENT, NO EXUDATE OR REDNESS NOTED EXT FULL ROM, AMB AD CATHERINE A/P RIGHT EXTERNAL OTITIS WILL ORDER OFLOXACIN 2 GTTS TO RIGHT EAR BID X 5 DAYS MOTRIN CONTINUED PRN CONTINUE TO MONITOR CLINICALLY
[2018-06-17] MEDS: THIAMINE HCL 100 MG TABLET (FP) PO SCH (21:06)
[2018-06-17] MEDS: QUEtiapine FUMARATE 50 MG TABLET PO SCH (21:07)
[2018-06-17] MEDS: MELATONIN 5 MG TABLETS PO PRN (21:07)
[2018-06-18] MEDS: ACETAMINOPHEN 325 MG TABLET (FP) PO PRN ×3 (06:28→21:06)
[2018-06-18] MEDS: NICOTINE POLACRILEX 4 MG GUM BUC PRN ×5 (06:28→21:07)
[2018-06-18] MEDS: OFLOXACIN 0.3% OTIC SOLUTION 5 ML BOTTLE AD SCH ×4 (10:04→21:06)
[2018-06-18] MEDS: NALTREXONE HCL 50 MG TABLET PO SCH (10:05)
[2018-06-18] MEDS: PRENATAL VITAMINS W/ FOLIC ACID TABLET (FP) PO SCH (10:05)
[2018-06-18] MEDS ORDERED: PT OWN MED DRAWER 7, Y5N ONE ×3 (10:07→10:43)
[2018-06-18] MEDS: THIAMINE HCL 100 MG TABLET (FP) PO SCH (21:07)
[2018-06-18] MEDS: MELATONIN 5 MG TABLETS PO PRN (21:07)
[2018-06-18] MEDS: QUEtiapine FUMARATE 50 MG TABLET PO SCH (21:07)
[2018-06-19] MEDS: NICOTINE POLACRILEX 4 MG GUM BUC PRN ×4 (06:35→18:36)
[2018-06-19] MEDS: ACETAMINOPHEN 325 MG TABLET (FP) PO PRN ×3 (06:35→18:35)
[2018-06-19] MEDS: NALTREXONE HCL 50 MG TABLET PO SCH (10:21)
[2018-06-19] MEDS: OFLOXACIN 0.3% OTIC SOLUTION 5 ML BOTTLE AD SCH ×2 (10:22→22:08)
[2018-06-19] MEDS: PRENATAL VITAMINS W/ FOLIC ACID TABLET (FP) PO SCH (10:22)
[2018-06-19] MEDS ORDERED: PT OWN MED DRAWER 7, Y5N ONE (15:46)
[2018-06-19] MEDS: QUEtiapine FUMARATE 50 MG TABLET PO SCH (22:08)
[2018-06-19] MEDS: MELATONIN 5 MG TABLETS PO PRN (22:08)
[2018-06-19] MEDS: THIAMINE HCL 100 MG TABLET (FP) PO SCH (22:08)
[2018-06-20] MEDS ORDERED: PT OWN MED DRAWER 7, Y5N ONE (06:14)
[2018-06-20] MEDS: ACETAMINOPHEN 325 MG TABLET (FP) PO PRN ×3 (07:20→21:22)
[2018-06-20] MEDS: NICOTINE POLACRILEX 4 MG GUM BUC PRN ×6 (07:23→21:26)
[2018-06-20] MEDS ORDERED: NALTREXONE MICROSPHERES (VIVITROL) 380 MG DISP.SYRIN IM ONE (10:00)
[2018-06-20] MEDS: OFLOXACIN 0.3% OTIC SOLUTION 5 ML BOTTLE AD SCH ×2 (10:01→21:22)
[2018-06-20] MEDS: PRENATAL VITAMINS W/ FOLIC ACID TABLET (FP) PO SCH (10:01)
[2018-06-20] MEDS: THIAMINE HCL 100 MG TABLET (FP) PO SCH (21:21)
[2018-06-20] MEDS: QUEtiapine FUMARATE 50 MG TABLET PO SCH (21:22)
[2018-06-20] MEDS: MELATONIN 5 MG TABLETS PO PRN (21:22)
[2018-06-21] MEDS: ACETAMINOPHEN 325 MG TABLET (FP) PO PRN ×2 (06:28→21:16)
[2018-06-21] MEDS: NICOTINE POLACRILEX 4 MG GUM BUC PRN ×6 (06:29→21:17)
[2018-06-21] MEDS: OFLOXACIN 0.3% OTIC SOLUTION 5 ML BOTTLE AD SCH ×2 (10:53→21:17)
[2018-06-21] MEDS: PRENATAL VITAMINS W/ FOLIC ACID TABLET (FP) PO SCH (10:53)
--- NOTE | 2018-06-21 11:57 | PN ---
S Progress Note Note: c/o ear pain, was placed on abx yesterday, debrox for ear wax last week Ear canal swollen, red, tender to palpation Otitis media Continue ear gtts and pain medication as needed.
--- NOTE | 2018-06-21 12:10 | PN ---
[facility] Progress Note Note: Patient to be discharged tomorrow. Order written. Receiving aftercare at [facility] in [place]. States she gets primary care at a clinic close to the center, does not remember the name. Client has no home meds that need to be reviewed. Client should continue Floxin for ear and follow up with primary care upon discharge.
[2018-06-21] MEDS: IBUPROFEN 600 MG TABLET (FP) PO PRN (13:11)
--- NOTE | 2018-06-21 15:05 | PN ---
[facility] Progress Note Note: Patient will be discharged tomorrow. Script for 30 days of Seroquel 50 mg po HS will be electronically transmitted to [facility] at [address] [place], [place] [id number]
[2018-06-21] MEDS: MELATONIN 5 MG TABLETS PO PRN (21:16)
[2018-06-21] MEDS: QUEtiapine FUMARATE 50 MG TABLET PO SCH (21:16)
[2018-06-21] MEDS: THIAMINE HCL 100 MG TABLET (FP) PO SCH (21:16)
[2018-06-22] MEDS: ACETAMINOPHEN 325 MG TABLET (FP) PO PRN (06:10)
[2018-06-22 06:56] VITALS: BP 124/61; PULSE 80; TEMP 97.5
[2018-06-22] MEDS: NICOTINE POLACRILEX 4 MG GUM BUC PRN (08:39)
[2018-06-22] MEDS: PRENATAL VITAMINS W/ FOLIC ACID TABLET (FP) PO SCH (09:29)
== END 2018-06-22 09:34 | disposition home or self-care (01) | DRG 772 ==
LOC: YASAS 14:14 → Y3W 14:17
PROVIDERS: ADMIT Neuromusculoskeletal Medicine & OMM; ATTEND Neuromusculoskeletal Medicine & OMM
PROC: HZ42ZZZ Group Counseling for Substance Abuse Treatment, Cognitive-Behavioral (ICD-10-PCS; principal; 2018-05-30)
DX: F10.20 Alcohol dependence, uncomplicated (principal); F14.20 Cocaine dependence, uncomplicated; F12.90 Cannabis use, unspecified, uncomplicated; F17.210 Nicotine dependence, cigarettes, uncomplicated; F31.81 Bipolar II disorder; H60.91 Unspecified otitis externa, right ear; H66.91 Otitis media, unspecified, right ear; H61.21 Impacted cerumen, right ear; R51 Headache; K02.9 Dental caries, unspecified; K05.10 Chronic gingivitis, plaque induced; Z91.012 Allergy to eggs; Z88.0 Allergy status to penicillin
CPT/HCPCS: 36415; 80053; J2315